=== PATIENT | female | born 1985 | race Caucasian/White ===

== ENCOUNTER 2018-09-01 01:51 | Emergency (ER) | payer MEDICAID, OTHER ==
[~2018-09-01] VITALS: Ht 167.6 cm; Wt 68.0 kg
[2018-09-01 01:54] VITALS: Ht 167.6 cm; Wt 68.0 kg
[2018-09-01] MEDS ORDERED: ACETAMINOPHEN 325 MG TAB PO ONE (03:00)
[2018-09-01 04:15] VITALS: BP 124/74; PULSE 78; RESP 16
--- NOTE | 2018-09-03 18:59 | ERD ---
ER Documentation Chief Complaint Chief Complaint Abdominal pain after slip and fall at home , pt stated that she hit d floor HPI 33-year-old female who is reportedly 3 weeks presenting to the emergency department complaining of slip and fall down 5 stairs just prior to arrival. She reports 8/10 pain to the suprapubic region. She denies any vaginal bleeding or discharge. She took no medication for relief of symptoms. She denies any head injury or loss of consciousness or other symptoms or injuries at this time. ROS All systems reviewed and are negative except as per history of present illness. Allergies Allergies: Coded Allergies: No Known Allergy (Unverified , 09/01/18) PMhx/Soc Medical and Surgical Hx: pt denies Medical Hx, pt denies Surgical Hx Hx Alcohol Use: No Hx Substance Use: No Hx Tobacco Use: No FmHx Family History: No diabetes Physical Exam Vitals Vital Signs Date Temp Pulse Resp B/P (MAP) Pulse Ox O2 O2 Flow FiO2 Time Delivery Rate 09/01/18 98.2 78 16 124/74 98 Room Air 04:15 (91) 09/01/18 98.1 89 16 140/94 98 01:54 (109) Physical Exam Const: No acute distress Head: Atraumatic Eyes: Normal Conjunctiva ENT: Normal External Ears, Nose and Mouth. Neck: Full range of motion. No meningismus. Resp: Clear to auscultation bilaterally Cardio: Regular rate and rhythm, no murmurs Abd: Soft, non tender, non distended. Normal bowel sounds. Tenderness palpation of suprapubic region bilaterally. No rebound tenderness or guarding. No McBurney's point tenderness. Skin: No petechiae or rashes Back: No midline or flank tenderness Ext: No cyanosis, or edema Neur: Awake and alert Psych: Normal Mood and Affect Results 24 hrs Current Medications Medications Dose Sig/Natalie Start Time Status Last (Trade) Ordered Route PRN Stop Time Admin Dose Reason Admin 650 mg ONCE ONCE 09/01/18 DC 09/01/18 Acetaminophen PO 03:00 03:37 (Tylenol 09/01/18 03:01 Tab) [address] [address] Radiology Main Line: [phone] DIAGNOSTIC IMAGING REPORT Patient: THERON SEPULVEDA : 1985 Age: 33 Sex: F MR #: [id number] DOS: 09/01/18 0000 Ordering MD: VELMA BARRETT PA-C [facility] Room/Bed: PROCEDURE: ULTRASOUND OBSTETRICAL CLINICAL INDICATION: 33-year-old female with pelvic pain following trauma. TECHNIQUE: Multiple sonographic images of the pelvis were obtained. The images were reviewed on a PACS workstation. COMPARISON: No prior studies are available for comparison. FINDINGS: The cervix is not well visualized. There is a single viable intrauterine gestation. Cardiac activity is present with 166 beats per minute. There is a variable presentation. Measurements were made in order to determine age. The results are as follows: BPD = 2.39 cm, HC = 8.70 cm, AC = 6.93 cm, FL = 1.08 cm. This yields and estimated gestational age of approximately 13 weeks 5 days. The estimated date of delivery is March 04, 2019. The EFW = 76 +/- 11 g. The GP is less than 3%. The placenta is anterior grade 0. There is no evidence for an abruption or placenta previa. There is an adequate amount of amniotic fluid with maximal vertical pocket of 3.5 cm. IMPRESSION: Single viable intrauterine gestation of approximately 13 weeks 5 days. The estimated date of delivery is March 04, 2019. .Jared Brink MD, MD Date Time Electronically viewed and signed by .Jared Brink MD, MD on 09/01/2018 03:22 .M/ CC: VELMA BARRETT PA-C [phone] Procedures/MDM This patient is a 32-year-old female presented to the emergency department complaining of suprapubic pain after fall onto her lower abdominal region just prior to arrival. Patient is reportedly . Obstetrics ultrasound showed a live intrauterine with cardiac activity present. Low suspicion for any significant abdominal trauma at this time. No evidence to suggest failed , acute surgical abdomen, or other emergencies. Patient stable and appropriate for discharge in 24 to 48-hour follow-up with her [facility] physician. The patient was advised to return here immediately for any new or worsening or concerning symptoms. Patient was in agreement with the diagnosis, plan company for follow-up, return precautions. Departure Diagnosis: Primary Impression: Fall with no significant injury Encounter type: initial encounter Qualified Codes: W19.XXXA - Unspecified fall, initial encounter Condition: Fair Patient Instructions: Fall Prevention Referrals: [facility] [address] [facility] [address] [place] [address] OFFICE FAX , [facility] [address] [place] [address] [address] [place] [address] [place] [address] [address] [place] [address] [facility] [address] [address] [address] [facility] [address] [place] [address] [facility] [address] [place] [address] [facility] [address] - CECILIO YATES [address], [facility] [address] [address] [address] [facility]. [address], [facility] [address] [address] [address] [place], [place] [id number] Additional Instructions: SPECIALIST: YOU HAVE A MEDICAL CONDITION WHICH REQUIRES YOU TO SEE A SPECIALIST WITHIN THE NEXT 1-2 DAYS. PLEASE FOLLOW UP WITH YOUR PRIMARY PHYSICIAN FOR REFFERAL.IF YOU DO NOT HAVE A PRIMARY CARE PHYSICIAN AND/OR YOU CAN NOT AFFORD TO SEE A PHYSICIAN THE FOLLOWING RESOURCES HAVE BEEN SUPPLIED TO YOU. IT IS YOUR RESPONSIBILITY TO BE SEEN BY THE SPECIALIST: VELMA PAVON PA-C Sep 03, 2018 18:59
== END 2018-09-01 04:15 | disposition home or self-care (01) ==
LOC: FTE 01:51
DX: O26.891 Other specified pregnancy related conditions, first trimester (principal); R10.9 Unspecified abdominal pain; Z3A.13 13 weeks gestation of pregnancy
CPT/HCPCS: 76805; Z7502; Z7610